=== PATIENT | male | born 1945 | race Caucasian/White ===

== ENCOUNTER 2018-03-18 11:28 | Emergency (ER) | payer MEDICARE ==
[~2018-03-18] VITALS: Ht 180.3 cm; Wt 70.7 kg
[2018-03-18 12:02] LABS: BASOPHILS % (AUTO) 0.7 % (0-1); EOSINOPHILS # (AUTO) 0.2 X10'3 (0-0.9); EOSINOPHILS % (AUTO) 4.2 % (0-6); HEMATOCRIT 31.8 % (42.0-52.0); HEMOGLOBIN 10.7 g/dl (14.0-17.9); LYMPHOCYTES # (AUTO) 1.5 X10'3 (1.1-4.8); LYMPHOCYTES % (AUTO) 30.4 % (21-51); MEAN CORPUSCULAR HGB CONC 33.7 % (33.0-36.5); MEAN CORPUSCULAR VOLUME 95.1 FL (78-98); MEAN PLATELET VOLUME 7.4 FL (7.4-10.4); MONOCYTES # (AUTO) 0.5 X10'3 (0-0.9); MONOCYTES % (AUTO) 9.7 % (2-12); NEUTROPHILS # (AUTO) 2.6 X10'3 (1.8-7.7); PLATELET COUNT 388 X10'3 (140-440); RED BLOOD COUNT 3.35 X10'6 (4.70-6.10); RED CELL DISTRIBUTION WIDTH 12.7 % (11.5-14.5); WHITE BLOOD COUNT 4.8 X10'3 (4.5-11.0)
[2018-03-18 12:17] LABS: ALANINE AMINOTRANSFERASE 25 U/L (12-78); ALBUMIN 2.6 G/DL (3.4-5.0); ALBUMIN/GLOBULIN RATIO 0.5 (1.1-1.5); ALKALINE PHOSPHATASE 93 IU/L (46-116); ANION GAP 11 (8-16); ASPARTATE AMINO TRANSFERASE 19 U/L (10-37); BILIRUBIN,TOTAL 0.4 MG/DL (0.1-1.0); BLOOD UREA NITROGEN 21 MG/DL (7-18); BUN/CREATININE RATIO 19.3 (5.4-32.0); CALCIUM 9.2 MG/DL (8.5-10.1); CHLORIDE 103 MMOL/L (99-107); CREATININE 1.09 MG/DL (0.60-1.10); GLUCOSE 182 MG/DL (70-104); POTASSIUM 4.4 MMOL/L (3.5-5.1); SODIUM 140 MMOL/L (135-145); TOTAL CARBON DIOXIDE 25.9 MMOL/L (24-32); TOTAL PROTEIN 7.6 G/DL (6.4-8.2); eGFR 66 ML/MIN
[2018-03-18 12:25] LABS: PARTIAL THROMBOPLASTIN TIME 24 SECONDS (22-32)
--- NOTE | 2018-03-18 13:58 | NUR ---
lung sounds dim left upper lobe coarse slight wheezing lower lobes. pt states, "im just getting weaker and weaker" "cancelling activities because so weak , just staying home except for doctors appt.
--- NOTE | 2018-03-18 14:00 | NUR ---
pt was told to come to er by Dr. dee hernandez today.
[2018-03-18 14:01] VITALS: BP 105/60
[2018-03-18] MEDS ORDERED: BENZ-16 PO (14:12)
[2018-03-18] MEDS ORDERED: DOXY100C43 PO (14:12)
== END 2018-03-18 14:32 | disposition home or self-care (01) ==
LOC: ER 11:29
DX: J18.1 Lobar pneumonia, unspecified organism (principal); E78.00 Pure hypercholesterolemia, unspecified; I10 Essential (primary) hypertension; E11.9 Type 2 diabetes mellitus without complications; G89.29 Other chronic pain; Z87.891 Personal history of nicotine dependence; Z98.890 Other specified postprocedural states
CPT/HCPCS: 36415; 71046; 80053; 84484; 85025; 85610; 85730; 93005; 99284

== ENCOUNTER 2018-05-25 06:42 | Day surgery (SDC) | payer MEDICARE ==
[2018-05-18 13:22] LABS: BASOPHILS # (AUTO) 0.1 X10'3 (0-0.2); BASOPHILS % (AUTO) 1.3 % (0-1); EOSINOPHILS # (AUTO) 0.2 X10'3 (0-0.9); EOSINOPHILS % (AUTO) 3.5 % (0-6); LYMPHOCYTES # (AUTO) 1.7 X10'3 (1.1-4.8); LYMPHOCYTES % (AUTO) 29.9 % (21-51); MEAN CORPUSCULAR HEMOGLOBIN 32.9 PG (27.0-31.0); MEAN CORPUSCULAR HGB CONC 34.6 g/dL (33.0-36.5); MEAN PLATELET VOLUME 7.8 FL (7.4-10.4); MONOCYTES # (AUTO) 0.6 X10'3 (0-0.9); MONOCYTES % (AUTO) 10.6 % (2-12); NEUTROPHILS # (AUTO) 3.1 X10'3 (1.8-7.7); NEUTROPHILS % (AUTO) 54.7 % (42-75); PRE OP HEMATOCRIT 31.1 % (42.0-52.0); PRE OP PLATELET COUNT 263 X10'3 (140-440); RED BLOOD COUNT 3.28 X10'6 (4.70-6.10); RED CELL DISTRIBUTION WIDTH 15.3 % (11.5-14.5)
[2018-05-18 13:26] LABS: PRE OP HEMOGLOBIN 10.8 g/dL (14.0-17.9)
[2018-05-18 13:45] LABS: ALBUMIN 3.6 G/DL (3.4-5.0); ALKALINE PHOSPHATASE 63 IU/L (46-116); BLOOD UREA NITROGEN 36 MG/DL (7-18); BUN/CREATININE RATIO 31.3 (5.4-32.0); CALCIUM 10.4 MG/DL (8.5-10.1); CHLORIDE 106 MMOL/L (99-107); CREATININE 1.15 MG/DL (0.60-1.10); PRE OP ALT 27 U/L (30-65); PRE OP ANION GAP 5 (8-16); PRE OP AST 11 U/L (10-37); PRE OP BILIRUB, TOTAL 0.4 MG/DL (0.0-1.0); PRE OP POTASSIUM 4.6 MMOL/L (3.4-5.1); PRE OP SODIUM 136 MMOL/L (135-145); TOTAL CARBON DIOXIDE 24.8 MMOL/L (24-32); TOTAL PROTEIN 7.2 G/DL (6.4-8.2); eGFR 62 ML/MIN
[2018-05-18 13:52] LABS: PRE OP GLUCOSE 231 MG/DL (70-104)
[2018-05-25] VITALS (7 sets, daily range): BP systolic 130–148; BP diastolic 40–86
[~2018-05-25] VITALS: Ht 180.3 cm; Wt 73.0 kg
[~2018-05-25 06:42] MED LIST: ASPI81TA52 PO; ATOR40TA72 PO; CANA300T PO; CHOL50004 PO; DIPH25CA83 PO; DOCUMENT DATE & TIME OF BETA-BLOCKER PO ONE; GLIM4TAB79 PO; LISI-600 PO; METF500T7 PO; METO-411 PO; OMEG1CAP20 PO; PRIM250T48 PO; VITAMIN B-12; ceFAZolin 1GM/D5W- ADD-VANTAGE 50 ML IV ONE; famotidine 20mg tablet PO ONE; ringers solution, lacted 1,000 ML IV SCH
[2018-05-25] MEDS ORDERED: BUPIVAcaine/PF 2.5mg/ml (0.25%) 10ml vial ONE (06:47)
[2018-05-25] MEDS ORDERED: LIDOcaine 1% 30ml preserv. free vial ONE (07:27)
[2018-05-25] MEDS ORDERED: ringers solution, lacted 1,000 ML IV SCH (08:01)
[2018-05-25] MEDS ORDERED: morphine 4 MG/ML inj SYRINge IV PRN ×2 (08:05)
[2018-05-25] MEDS ORDERED: meperidine/PF 25mg/ml syringe IV PRN ×3 (08:05)
[2018-05-25] MEDS ORDERED: ondansetron/PF 4mg/2ml inj IV PRN (08:05)
[2018-05-25] MEDS ORDERED: proCHLORperazine 10 MG/2 ml inj IV PRN (08:05)
[2018-05-25] MEDS ORDERED: insulin regular, human 10 units/0.1 ml syringe SQ ONE (08:30)
[2018-05-25] MEDS ORDERED: midazolam 2 mg/2 ml injection ONE (09:30)
[2018-05-25] MEDS ORDERED: fentaNYL/PF 50MCG/1 ML 2ML syringe ONE (09:30)
[2018-05-25] MEDS ORDERED: ketorolac trometh. 30mg/ml inj. ONE (09:43)
[2018-05-25] MEDS ORDERED: ROPIVAcaine 0.5% (5mg/ml) 30ml vial ONE (10:26)
--- NOTE | 2018-05-25 10:45 | NUR ---
PATIENT RECIEVED FROM DR CAESAR WILSON, PLEASE DISREGARD THAT PORTION OF PREVIOUS NOTE
--- NOTE | 2018-05-25 10:45 | NUR ---
Received from OR via BED, accompanied by Anesthesiologist DR WILSON and report given by Anesthesiolgist. PATIENT A&OX4, DENIES PAIN, V/S WNL, NEUROVASCULAR CHECKS INTACT, 18G PIV RUE, SCD ON, DRESSING TO RIGHT MIDDLE FINGER CDI ELEVATED WITH ICEBAG APPLIED AND DRESSING TO LEFT ELBOW CDI.
--- NOTE | 2018-05-25 11:25 | NUR ---
PATIENT A&OX4, DENIES PAIN, V/S WNL, NEUROVASCULAR CHECKS INTACT, 20G PIV RUE D/C, SCD OFF, DRESSING TO RIGHT MIDDLE FINGER CDI ELEVATED WITH ICEBAG APPLIED AND DRESSING TO LEFT ELBOW CDI. I HAVE REVIEWED D/C INSTRUCTIONS WITH PATIENT AND FAMILY AND THEY HAVE VERBALIZED UNDERSTANDING. PATIENT D/C HOME WITH ALL BELONGINGS AND FAMILY GAVE TRANSPORT HOME.
== END 2018-05-25 11:25 | disposition home or self-care (01) ==
LOC: PAS 06:42
PROVIDERS: ATTEND Orthopaedic Surgery Hand Surgery
DX: G56.22 Lesion of ulnar nerve, left upper limb (principal); D21.11 Benign neoplasm of connective and other soft tissue of right upper limb, including shoulder; Z87.891 Personal history of nicotine dependence; Z79.899 Other long term (current) drug therapy; Z98.890 Other specified postprocedural states
CPT/HCPCS: 26116; 36415; 64718; 80053; 82948; 85025; 93005; A6222; A6449; J0690; J1815; J1885; J2250; J3010; J3490; J2795; J7120

== ENCOUNTER 2019-12-17 13:58 | Emergency (ER) | payer MEDICARE ==
[~2019-12-17] VITALS: Ht 180.3 cm; Wt 90.0 kg
[~2019-12-17 13:58] MED LIST changes: -DOCUMENT DATE & TIME OF BETA-BLOCKER PO ONE; +GLIM4TAB7 PO; -GLIM4TAB79 PO; +METF-900 PO; -METF500T7 PO; -PRIM250T48 PO; +PRIM250T8 PO; -ceFAZolin 1GM/D5W- ADD-VANTAGE 50 ML IV ONE; -famotidine 20mg tablet PO ONE; -ringers solution, lacted 1,000 ML IV SCH
[2019-12-17] MEDS ORDERED: normal saline 1000ML IV soln IVB ONE (14:10)
[2019-12-17 14:31] LABS: BASOPHILS # (AUTO) 0.1 X10'3 (0-0.2); BASOPHILS % (AUTO) 1.4 % (0-1); EOSINOPHILS # (AUTO) 0.4 X10'3 (0-0.9); EOSINOPHILS % (AUTO) 5.2 % (0-6); HEMATOCRIT 35.6 % (42.0-52.0); HEMOGLOBIN 12.3 g/dl (14.0-17.9); LYMPHOCYTES # (AUTO) 1.7 X10'3 (1.1-4.8); LYMPHOCYTES % (AUTO) 24.1 % (21-51); MEAN CORPUSCULAR HEMOGLOBIN 33.1 PG (27.0-31.0); MEAN CORPUSCULAR HGB CONC 34.6 g/dL (33.0-36.5); MEAN CORPUSCULAR VOLUME 95.7 FL (78-98); MEAN PLATELET VOLUME 7.6 FL (7.4-10.4); MONOCYTES # (AUTO) 0.7 X10'3 (0-0.9); MONOCYTES % (AUTO) 9.2 % (2-12); NEUTROPHILS # (AUTO) 4.3 X10'3 (1.8-7.7); NEUTROPHILS % (AUTO) 60.1 % (42-75); PLATELET COUNT 235 X10'3 (140-440); RED BLOOD COUNT 3.72 X10'6 (4.70-6.10); RED CELL DISTRIBUTION WIDTH 13.2 % (11.5-14.5); WHITE BLOOD COUNT 7.1 X10'3 (4.5-11.0)
[2019-12-17 14:49] LABS: CLARITY,URINE CLEAR (Clear); COLOR,URINE STRAW (Yellow); GLUCOSE, URINE >=1000 mg/dl (Neg); KETONES,URINE NEGATIVE (Neg); LEUKOCYTE ESTERASE ,URINE NEGATIVE (Neg); NITRITES, URINE NEGATIVE (Neg); OCCULT BLOOD,URINE TRACE-INTACT (Neg); PH,URINE 5.5 (4.8-8.0); PROTEIN,URINE 30 mg/dl (Neg); UA COLLECTION TYPE CLN CATCH MIDSTREAM; UROBILINOGEN,URINE 0.2 E.U/dL (0.2-1.0)
[2019-12-17 14:55] LABS: ALANINE AMINOTRANSFERASE 38 U/L (12-78); ALBUMIN 3.6 G/DL (3.4-5.0); ALBUMIN/GLOBULIN RATIO 1.1 (1.1-1.5); ALKALINE PHOSPHATASE 59 IU/L (46-116); ANION GAP 10 (8-16); ASPARTATE AMINO TRANSFERASE 18 U/L (10-37); BILIRUBIN,TOTAL 0.5 MG/DL (0.1-1.0); BLOOD UREA NITROGEN 43 MG/DL (7-18); BUN/CREATININE RATIO 27.9 (5.4-32.0); CALCIUM 9.1 MG/DL (8.5-10.1); CHLORIDE 103 MMOL/L (99-107); CREATINE KINASE 54 U/L (39-308); CREATININE 1.54 MG/DL (0.60-1.10); GLUCOSE 279 MG/DL (70-104); POTASSIUM 4.6 MMOL/L (3.5-5.1); SODIUM 137 MMOL/L (135-145); TOTAL CARBON DIOXIDE 23.6 MMOL/L (24-32); eGFR 44 ML/MIN
[2019-12-17 14:57] LABS: BACTERIA,URINE FEW /HPF (Neg); RBC,URINE 0-2 /HPF (0-2); SQUAMOUS EPITHELIAL CELL,UR FEW /LPF (FEW); WBC,URINE 0-4 /HPF (0-4)
[2019-12-17] MEDS ORDERED: CLON-528 PO (15:25)
[2019-12-17 15:47] VITALS: BP 164/79
== END 2019-12-17 15:49 | disposition home or self-care (01) ==
LOC: ER 13:59
DX: R25.1 Tremor, unspecified (principal); E11.9 Type 2 diabetes mellitus without complications; E78.00 Pure hypercholesterolemia, unspecified; I10 Essential (primary) hypertension; G89.29 Other chronic pain; Z98.890 Other specified postprocedural states; Z72.89 Other problems related to lifestyle; Z79.82 Long term (current) use of aspirin; Z79.899 Other long term (current) drug therapy
CPT/HCPCS: 36415; 70450; 71045; 80053; 81001; 82140; 82550; 82948; 85025; 93005; 99285; J7030; 96360

== ENCOUNTER 2021-12-27 07:28 | Day surgery (SDC) | payer MEDICARE ==
[2021-12-22 12:05] LABS: BASOPHILS # (AUTO) 0.1 X10'3 (0-0.2); BASOPHILS % (AUTO) 1.1 % (0-1); EOSINOPHILS # (AUTO) 0.2 X10'3 (0-0.9); EOSINOPHILS % (AUTO) 3.7 % (0-6); LYMPHOCYTES # (AUTO) 1.4 X10'3 (1.1-4.8); LYMPHOCYTES % (AUTO) 25.7 % (21-51); MEAN CORPUSCULAR HEMOGLOBIN 31.5 PG (27.0-31.0); MEAN CORPUSCULAR HGB CONC 33.3 g/dL (33.0-36.5); MEAN CORPUSCULAR VOLUME 94.6 FL (78-98); MEAN PLATELET VOLUME 7.9 FL (7.4-10.4); MONOCYTES # (AUTO) 0.5 X10'3 (0-0.9); MONOCYTES % (AUTO) 8.2 % (2-12); NEUTROPHILS # (AUTO) 3.4 X10'3 (1.8-7.7); NEUTROPHILS % (AUTO) 61.3 % (42-75); PRE OP HEMATOCRIT 38.4 % (42.0-52.0); PRE OP HEMOGLOBIN 12.8 g/dL (14.0-17.9); PRE OP PLATELET COUNT 224 X10'3 (140-440); RED BLOOD COUNT 4.06 X10'6 (4.70-6.10); RED CELL DISTRIBUTION WIDTH 14.1 % (11.5-14.5)
[2021-12-22 12:13] LABS: ALBUMIN 3.9 G/DL (3.4-5.0); ALBUMIN/GLOBULIN RATIO 1.1 (1.1-1.5); ALKALINE PHOSPHATASE 65 IU/L (46-116); BLOOD UREA NITROGEN 48 MG/DL (7-18); CALCIUM 9.3 MG/DL (8.5-10.1); CHLORIDE 111 MMOL/L (99-107); CREATININE 1.37 MG/DL (0.60-1.10); PRE OP ALT 36 U/L (30-65); PRE OP ANION GAP 8 (8-16); PRE OP AST 17 U/L (10-37); PRE OP BILIRUB, TOTAL 0.3 MG/DL (0.0-1.0); PRE OP GLUCOSE 156 MG/DL (70-104); PRE OP SODIUM 146 MMOL/L (135-145); TOTAL CARBON DIOXIDE 27.5 MMOL/L (24-32); TOTAL PROTEIN 7.5 G/DL (6.4-8.2); eGFR 50 ML/MIN
[2021-12-27] VITALS (7 sets, daily range): BP systolic 138–162; BP diastolic 77–86
[~2021-12-27] VITALS: Ht 180.3 cm; Wt 77.1 kg
[~2021-12-27 07:28] MED LIST changes: +ACET325T64 PO; -ASPI81TA52 PO; +BUPIVAcaine/PF 2.5 mg/ml (0.25%) 30ml vial ONE; +BUPIVAcaine/PF 2.5mg/ml (0.25%) 10ml vial ONE; -CANA300T PO; -CHOL50004 PO; +CLON0.5T23 PO; +DOCUMENT DATE & TIME OF BETA-BLOCKER PO ONE; +EMPA10TA PO; +GABA-534 PO; +LIDOcaine 0.5% (5mg/ml) 50ml vial ONE; -LISI-600 PO; -METF-900 PO; +TOP100T PO; +ceFAZolin inj. 2,000 MG in dextrose 5%-water 100 ML IV ONE; +famotidine 20mg tablet PO ONE; +ringers solution, lacted 1,000 ML IV SCH
[2021-12-27] MEDS ORDERED: labetalol 20mg/4ml (5mg/ml) syringe IV PRN (08:20)
[2021-12-27] MEDS ORDERED: fentaNYL/PF 50MCG/1 ML 2ML syringe IV PRN ×2 (08:20)
[2021-12-27] MEDS ORDERED: ringers solution, lacted 1,000 ML IV SCH (08:20)
[2021-12-27] MEDS ORDERED: morphine 2 MG/ML inj. syringe IV PRN (08:20)
[2021-12-27] MEDS ORDERED: hydrALAZINE 20mg/ml inj. IV PRN (08:20)
[2021-12-27] MEDS ORDERED: ondansetron/PF 4mg/2ml inj IV PRN (08:20)
[2021-12-27] MEDS ORDERED: morphine 4 MG/ML inj SYRINge IV PRN (08:20)
[2021-12-27] MEDS ORDERED: ROPIVAcaine 0.5% (5mg/ml) 30ml vial ONE (08:22)
[2021-12-27] MEDS ORDERED: fentaNYL/PF 50MCG/1 ML 2ML syringe ONE (10:27)
[2021-12-27] MEDS ORDERED: MIDAZolam 1 MG/ML 5ML VIAL ONE (10:27)
--- NOTE | 2021-12-27 11:17 | NUR ---
Received from OR via [place], accompanied by Anesthesiologist DR. HARRIS and report given by Anesthesiologist AND OR NURSE. PATIENT AWAKE ON ROOM AIR, NO S/S OF PAIN, V/S WNL, 20G TO RAC, LEFT WRIST, RIGHT MIDDLE FINGER DRESSING CDI. ICE APPLIED AND LEFT ARM ELEVATED. WILL CONTINUE TO MONITOR. Addendum: 12/27/21 at 1143 by Lesley Cam RN Amended: Links added.
--- NOTE | 2021-12-27 12:17 | NUR ---
PATIENT A&OX4, DENIES PAIN, V/S WNL, 20G to RAC D/C, LEFT WRIST AND RIGHT MIDDLE FINGER DRESSING CDI. ICE APPLIED AND ELEVATED. I HAVE REVIEWED D/C INSTRUCTIONS WITH PATIENT and HE HAS verbalized understanding patient d/c home with all belongings and family gave transport home. Addendum: 12/27/21 at 1230 by Lesley Cam RN Amended: Links added.
== END 2021-12-27 12:17 | disposition home or self-care (01) ==
LOC: PAS 07:28
PROVIDERS: ATTEND Orthopaedic Surgery Hand Surgery
DX: G56.02 Carpal tunnel syndrome, left upper limb (principal); G57.61 Lesion of plantar nerve, right lower limb; I10 Essential (primary) hypertension; E11.9 Type 2 diabetes mellitus without complications; Z79.899 Other long term (current) drug therapy; Z98.49 Cataract extraction status, unspecified eye; Z98.890 Other specified postprocedural states; Z87.891 Personal history of nicotine dependence
CPT/HCPCS: 36415; 64721; 64776; 80053; 82948; 85025; 93005; J0690; J2250; J2795; J3010; J3490; J7030; J7060; J7120; Z7506; Z7512; A4215